=== PATIENT | female | born 1990 | race Caucasian/White ===

== ENCOUNTER 2021-02-18 10:43 | Emergency (ER) | payer OTHER ==
--- NOTE | 2021-02-18 11:35 | ED Physician Documentation ---
PD HPI LOWER EXT INJURY - Stated complaint Stated Complaint: LT FOOT FB - Chief complaint Chief Complaint: Ext Problem - History obtained from History obtained from: Patient - History of Present Illness PD HPI LOW EXT INJURY LOCATION: Left, Foot Type of injury: Foreign body (was walking on wood floor with socks and got shard of wood into plantar foot. Unable to get it out at home as end is under skin.) Where injury occurred: Other (staying at friend's family house.) Timing - onset: Today Timing - details: Abrupt onset, Still present Worsened by: Moving, Palpating Associated symptoms: No: Weakness, Numbness Similar symptoms before: Has not had sx before Review of Systems Neurologic: denies: Focal weakness, Numbness PD PAST MEDICAL HISTORY - Past Medical History Cardiovascular: None Endocrine/Autoimmune: None - Allergies Allergies/Adverse Reactions: Allergies Allergy/AdvReac Type Severity Reaction Status Date / Time Penicillins Allergy Hives Verified 02/18/21 10:57 PD ED PE NORMAL - Vitals Vital signs reviewed: Yes - General General: Alert and oriented X 3, No acute distress, Well developed/nourished - Derm Derm: Normal color, Warm and dry - Extremities Extremities: Other (left plantar foot near 1st MT head with small puncture hole and palpable 2 cm straight object subcutaneously. The end of it is below skin level. ) Results - Vitals Vitals: Oxygen O2 Source Room air Procedures - FB removal FB location: Subcutaneous (left foot) FB removal preparation: Local anesthesia-specify (lido 1% with epi.) Removal method: Foreceps, Incision FB removal aftercare: No complications, Patient tolerated well, Removed successfully PD MEDICAL DECISION MAKING - ED course Complexity details: considered differential, d/w patient Departure - Departure Disposition: 01 Home, Self Care Clinical Impression: Acute foreign body of plantar aspect of left foot Qualifiers: Encounter type: initial encounter Qualified Code(s): S90.852A - Superficial foreign body, left foot, initial encounter Condition: Stable Record reviewed to determine appropriate education?: Yes Instructions: ED Foreign Body Splinter Removal Comments: Clean the area with soap and water once or twice daily. Activity as tolerated based on comfort. Tylenol ibuprofen if needed for mild pains. The large splinter is out. Recheck if signs of infection. Otherwise this should heal over the next week or so. Discharge Date/Time: 02/18/21 12:05
[2021-02-18 12:05] VITALS: BP 121/74
== END 2021-02-18 12:05 | disposition home or self-care (01) ==
LOC: ED 10:43
DX: S90.852A Superficial foreign body, left foot, initial encounter (principal); W45.8XXA Other foreign body or object entering through skin, initial encounter; Y92.009 Unspecified place in unspecified non-institutional (private) residence as the place of occurrence of the external cause
CPT/HCPCS: 28190